=== PATIENT | male | born 1970 | race Asian ===

== ENCOUNTER 2019-12-26 13:54 | Inpatient (IN) | payer MEDICARE, MEDICAID ==
[~2019-12-26] VITALS: Ht 165.1 cm; Wt 73.1 kg
[~2019-12-26 13:54] MED LIST: ALBU8HFA IH; BENZ1TAB10 PO; CHOL100018 PO; FLUD25I IM; HYDR28.45 TP; IBUP-2070 PO; LORA-999 PO; LORA10TA7 PO; MUPI1OIN5 TP; PALI819S IM; QUET200T PO; TRAZ150 PO; VALP250S23 PO; VITS42.53 TP
[2019-12-26] MEDS ORDERED: ADENOSINE 3 MG/ML 2 ML VIAL IVP ONE ×2 (14:00→14:05)
[2019-12-26] MEDS ORDERED: DILTIAZEM HCL 5 MG/ML 5 ML VIAL IVP ONE (14:20)
[2019-12-26] MEDS ORDERED: SODIUM CHLORIDE 0.9% 2,000 ML IV ONE (14:30)
[2019-12-26 15:18] LABS: ABG A-A DIFF O2 44.6 mmHg (10-20.0); ABG CARBOXYHEMOGLOBIN 0.3 % (0.0-1.5); ABG HCO3 14.7 mmol/L (22.0-26.0); ABG METHEMOGLOBIN 0.3 % (0.0-1.5); ABG OXYGEN CONTENT 15.3 mL/dL (15.0-23.0); ABG OXYGEN SATURATION 90.4 % (95.0-98.0); ABG OXYHEMOGLOBIN 89.9 % (94.0-100.0); ABG PCO2 27 mmHg (35-45); ABG PH 7.283 (7.35-7.450); ABG TOTAL HEMOGLOBIN 12.1 G/dL (12.0-18.0); PO2, ARTERIAL BG 71.9 mmHg (88.0-96.0); SOURCE, BLOOD GAS ARTERIAL; TEMPERATURE, FAHRENHEIT, BG 101.5 FAHREN (96.0-98.6)
[2019-12-26 15:19] LABS: O2 DEVICE,BLOOD GAS ROOM AIR (ROOM AIR); SITE, BLOOD GAS RT RADIAL
[2019-12-26 15:20] LABS: BASOPHILS % (AUTO) 0.5 % (0.0-2.0); EOSINOPHILS % (AUTO) 0.3 % (1.0-6.0); HEMATOCRIT 38.3 % (41-53); LYMPHOCYTES # (AUTO) 2.1 K/uL (1.0-4.8); LYMPHOCYTES % (AUTO) 14.4 % (22.0-44.0); MEAN CORPUSCULAR HEMOGLOBIN 29.6 pg (26.0-34.0); MEAN CORPUSCULAR VOLUME 87 fL (80-100); MONOCYTES # (AUTO) 1.3 K/uL (0.1-1.0); MONOCYTES % (AUTO) 9.3 % (2.0-9.0); NEUTROPHILS # (AUTO) 10.9 K/uL (1.8-7.7); NEUTROPHILS % (AUTO) 75.5 % (40.0-70.0); PLATELET COUNT (AUTO) 255 K/uL (150-450); RED BLOOD CELL COUNT(AUTO) 4.38 MIL/uL (4.50-5.90); RED CELL DISTRIBUTION WIDTH 13.6 % (11.5-14.5)
[2019-12-26 15:32] LABS: ANION GAP 23 mmol/L (8-16); BILIRUBIN,TOTAL 0.4 mg/dL (0.1-1.0); CALCIUM, TOTAL 8.6 mg/dL (8.8-10.5); CARBON DIOXIDE 13 mmol/L (22-29); CHLORIDE 106 mmol/L (98-107); CREATININE 2.59 mg/dL (0.60-1.30); GLOMERULAR FILTR. RATE CALC 26 mL/min (>60); GLUCOSE,RANDOM 139 mg/dL (70-110); POTASSIUM 4.5 mmol/L (3.5-5.1); SODIUM SERUM 142 mmol/L (136-145); UREA NITROGEN, BLOOD 16 mg/dL (7-18)
[2019-12-26 15:33] LABS: ALANINE AMINOTRANSFERASE 18 U/L (12-78); ALBUMIN 3.5 g/dL (3.4-5.0); ALKALINE PHOSPHATASE 67 U/L (46-116); ASPARTATE AMINOTRANSFERASE 24 U/L (15-37); TOTAL PROTEIN, SERUM 7.3 g/dL (6.4-8.2)
[2019-12-26 15:48] LABS: ACETAMINOPHEN < 2 mcg/mL (10-30); LACTIC ACID 12.6 mmol/L (0.4-2.0)
[2019-12-26 16:00] LABS: SALICYLATE 1.9 mg/dL (2.8-20.0)
[2019-12-26] MEDS ORDERED: SODIUM CHLORIDE 0.9% 1,000 ML IV ONE (17:00)
[2019-12-26 18:04] LABS: INR 1.1 (0.9-1.1); PROTHROMBIN TIME 11.4 SEC (9.4-11.6)
[2019-12-26] MEDS ORDERED: 0.9% SODIUM CHLORIDE 10 ML SYRINGE IVP PRN (19:45)
[2019-12-26] MEDS ORDERED: ACETAMINOPHEN 325 MG TABLET PO PRN (19:45)
[2019-12-26] MEDS ORDERED: ONDANSETRON HCL 4 MG/2 ML VIAL IVP PRN (19:45)
[2019-12-26] MEDS ORDERED: LORA5SOL7 PO (19:59)
[2019-12-26] MEDS ORDERED: FLUV50 PO (19:59)
[2019-12-26] MEDS ORDERED: QUET200T29 PO (19:59)
[2019-12-26] MEDS ORDERED: TRAZ150T79 PO (19:59)
[2019-12-26] MEDS ORDERED: CHOL100018 PO (19:59)
[2019-12-26] MEDS ORDERED: PALI819S IM (19:59)
[2019-12-26] MEDS ORDERED: MELA3TAB41 PO (19:59)
[2019-12-26] MEDS ORDERED: BENZ1TAB10 PO (21:09)
[2019-12-26 23:15] VITALS: BP 111/73
[2019-12-26] MEDS: SODIUM CHLORIDE 0.45% 500 ML IV SCH (23:16)
[2019-12-27] MEDS: CefTRIAXone 1 GM/DEXTROSE 50 ML IV SCH ×2 (01:07→21:24)
[2019-12-27] MEDS: SODIUM CHLORIDE 0.45% 500 ML IV SCH ×2 (04:28→12:43)
[2019-12-27 04:29] VITALS: BP 100/65
[2019-12-27 06:39] LABS: BASOPHILS % (AUTO) 0.4 % (0.0-2.0); EOSINOPHILS % (AUTO) 0.2 % (1.0-6.0); HEMATOCRIT 31.3 % (41-53); LYMPHOCYTES # (AUTO) 1.9 K/uL (1.0-4.8); LYMPHOCYTES % (AUTO) 16.6 % (22.0-44.0); MEAN CORPUSCULAR HEMOGLOBIN 30.3 pg (26.0-34.0); MEAN CORPUSCULAR HGB CONC 35.2 G/dL (31.0-37.0); MEAN CORPUSCULAR VOLUME 86 fL (80-100); MONOCYTES # (AUTO) 1.3 K/uL (0.1-1.0); MONOCYTES % (AUTO) 11.4 % (2.0-9.0); NEUTROPHILS # (AUTO) 8.2 K/uL (1.8-7.7); NEUTROPHILS % (AUTO) 71.4 % (40.0-70.0); PLATELET COUNT (AUTO) 174 K/uL (150-450); RED BLOOD CELL COUNT(AUTO) 3.64 MIL/uL (4.50-5.90); RED CELL DISTRIBUTION WIDTH 13.9 % (11.5-14.5)
[2019-12-27 06:59] LABS: CREATININE 1.81 mg/dL (0.60-1.30); MAGNESIUM 2.4 mg/dL (1.80-2.40)
[2019-12-27] MEDS ORDERED: HEPARIN SODIUM,PORCINE 5,000 UNITS/ML VIAL IVP PRN ×2 (08:15)
[2019-12-27] MEDS: FAMOTIDINE 10 MG/ML 2 ML VIAL IVP SCH (08:35)
[2019-12-27] MEDS: DEXAMETHASONE SOD PHOS 4 MG/ML VIAL IVP SCH (08:37)
[2019-12-27 08:42] VITALS: BP 114/69
[2019-12-27 08:51] LABS: INR 1.1 (0.9-1.1); PROTHROMBIN TIME 11.5 SEC (9.4-11.6)
[2019-12-27 09:08] LABS: C-REACTIVE PROTEIN QUANT 2.09 mg/dL (0.00-0.30)
[2019-12-27 09:22] LABS: APPEARANCE,URINE CLEAR (CLEAR); BILIRUBIN,URINE NEGATIVE (NEGATIVE); GLUCOSE, URINE (UA) NEGATIVE (NEGATIVE); KETONES,URINE NEGATIVE (NEGATIVE); LEUKOCYTE ESTERASE ,URINE NEGATIVE (NEGATIVE); NITRATE,URINE NEGATIVE (NEGATIVE); OCCULT BLOOD,URINE LARGE (NEGATIVE); PH,URINE 5.5 (5.0-8.0); PROTEIN,URINE SEE CONFIRM (NEGATIVE); UROBILINOGEN,URINE 0.2 mg/dL (<=1.0)
[2019-12-27 09:28] LABS: AMPHET/METH SCREEN,URINE NEGATIVE (NEGATIVE); BARBITURATE SCREEN, URINE NEGATIVE (NEGATIVE); BENZODIAZEPINES SCREEN,URINE NEGATIVE (NEGATIVE); CANNABINOID SCREEN,URINE NEGATIVE (NEGATIVE); COCAINE SCREEN,URINE NEGATIVE (NEGATIVE); METHADONE SCREEN, URINE NEGATIVE (NEGATIVE); OPIATE SCREEN,URINE NEGATIVE (NEGATIVE)
[2019-12-27 09:31] LABS: PHENCYCLIDINE SCREEN,URINE NEGATIVE (NEGATIVE)
[2019-12-27 09:37] LABS: BACTERIA,URINE None Seen /HPF (None Seen); SULFOSALICYLIC ACID,URINE 2+ (Negative); WBC,URINE 0-2 /HPF (0-5)
[2019-12-27] MEDS ORDERED: LORA10TA7 PO (09:41)
[2019-12-27] MEDS ORDERED: MELA3TAB82 PO (09:42)
[2019-12-27] MEDS ORDERED: TRAZ150 PO (09:42)
[2019-12-27] MEDS ORDERED: QUET200T PO ×2 (09:42)
[2019-12-27] MEDS: HEPARIN SODIUM 25000 UNITS/D5W 250 ML IV PRN (09:57)
[2019-12-27 12:57] VITALS: BP 101/73
[2019-12-27] MEDS ORDERED: POTASSIUM CHLORIDE 20 MEQ ER TABLET PO ONE ×2 (13:15→19:00)
[2019-12-27] MEDS: DOXYCYCLINE HYCLATE 100 MG TABLET PO SCH ×2 (13:50→22:24)
[2019-12-27 16:33] VITALS: BP 107/72
[2019-12-27] MEDS: SODIUM BICARBONATE 150 MEQ in DEXTROSE 5%-WATER 1,000 ML IV SCH (20:21)
[2019-12-27 21:07] VITALS: BP 116/77
[2019-12-27] MEDS ORDERED: SODIUM CHLORIDE 0.9% 250 ML IV ONE (21:07)
[2019-12-28] MEDS: HEPARIN SODIUM 25000 UNITS/D5W 250 ML IV PRN (00:37)
[2019-12-28 06:31] LABS: BASOPHILS % (AUTO) 0.3 % (0.0-2.0); EOSINOPHILS % (AUTO) 0 % (1.0-6.0); HEMATOCRIT 32.3 % (41-53); HEMOGLOBIN 11.2 g/dL (13.5-17.5); LYMPHOCYTES # (AUTO) 2.2 K/uL (1.0-4.8); LYMPHOCYTES % (AUTO) 16.5 % (22.0-44.0); MEAN CORPUSCULAR HEMOGLOBIN 29.6 pg (26.0-34.0); MEAN CORPUSCULAR HGB CONC 34.6 G/dL (31.0-37.0); MEAN CORPUSCULAR VOLUME 86 fL (80-100); MONOCYTES # (AUTO) 1.2 K/uL (0.1-1.0); MONOCYTES % (AUTO) 8.8 % (2.0-9.0); NEUTROPHILS # (AUTO) 9.9 K/uL (1.8-7.7); NEUTROPHILS % (AUTO) 74.4 % (40.0-70.0); PLATELET COUNT (AUTO) 184 K/uL (150-450); RED BLOOD CELL COUNT(AUTO) 3.78 MIL/uL (4.50-5.90); RED CELL DISTRIBUTION WIDTH 13.8 % (11.5-14.5)
[2019-12-28 08:07] VITALS: BP 129/80
[2019-12-28 08:27] LABS: CREATINE KINASE, TOTAL ONLY 51249 U/L (39-308)
[2019-12-28 09:24] LABS: ANION GAP 9 mmol/L (8-16); CALCIUM, TOTAL 8.7 mg/dL (8.8-10.5); CARBON DIOXIDE 24 mmol/L (22-29); CHLORIDE 109 mmol/L (98-107); CREATININE 1.17 mg/dL (0.60-1.30); GLOMERULAR FILTR. RATE CALC > 60 mL/min (>60); GLUCOSE,RANDOM 115 mg/dL (70-110); POTASSIUM 4.2 mmol/L (3.5-5.1); SODIUM SERUM 142 mmol/L (136-145); UREA NITROGEN, BLOOD 14 mg/dL (7-18)
[2019-12-28] MEDS: DOXYCYCLINE HYCLATE 100 MG TABLET PO SCH ×2 (09:55→20:44)
[2019-12-28] MEDS: FAMOTIDINE 10 MG/ML 2 ML VIAL IVP SCH (09:55)
[2019-12-28] MEDS: SODIUM BICARBONATE 150 MEQ in DEXTROSE 5%-WATER 1,000 ML IV SCH ×2 (09:55→21:58)
[2019-12-28] MEDS ORDERED: MORPHINE SULFATE 2 MG/ML SYRINGE IVP PRN ×2 (10:45→12:00)
[2019-12-28 11:05] VITALS: BP 108/73
[2019-12-28] MEDS: DEXAMETHASONE SOD PHOS 4 MG/ML VIAL IVP SCH (11:51)
[2019-12-28 15:10] LABS: APPEARANCE,URINE CLEAR (CLEAR); BILIRUBIN,URINE NEGATIVE (NEGATIVE); GLUCOSE, URINE (UA) NEGATIVE (NEGATIVE); KETONES,URINE NEGATIVE (NEGATIVE); LEUKOCYTE ESTERASE ,URINE NEGATIVE (NEGATIVE); NITRATE,URINE NEGATIVE (NEGATIVE); OCCULT BLOOD,URINE LARGE (NEGATIVE); PH,URINE 6.5 (5.0-8.0); PROTEIN,URINE NEGATIVE (NEGATIVE); UROBILINOGEN,URINE 0.2 mg/dL (<=1.0)
[2019-12-28 15:28] LABS: BACTERIA,URINE None Seen /HPF (None Seen); RBC,URINE 0-2 /HPF (0-2); SQUAMOUS EPITHELIAL CELL,UR Rare /LPF (None Seen); WBC,URINE 0-2 /HPF (0-5)
[2019-12-28 16:27] VITALS: BP 106/66
[2019-12-28 20:18] LABS: HEMATOCRIT 29.7 % (41-53); HEMOGLOBIN 10.4 g/dL (13.5-17.5)
[2019-12-28] MEDS: CefTRIAXone 1 GM/DEXTROSE 50 ML IV SCH (20:44)
[2019-12-28 21:07] VITALS: BP 102/61
[2019-12-28] MEDS: MORPHINE SULFATE 2 MG/ML SYRINGE IVP PRN (21:09)
[2019-12-29 00:05] VITALS: BP 103/75
[2019-12-29] MEDS: MORPHINE SULFATE 2 MG/ML SYRINGE IVP PRN ×2 (01:02→20:19)
[2019-12-29 01:52] LABS: HEMATOCRIT 28.9 % (41-53)
[2019-12-29 04:10] VITALS: BP 100/65
[2019-12-29 07:36] LABS: BASOPHILS % (AUTO) 0.3 % (0.0-2.0); EOSINOPHILS % (AUTO) 0.9 % (1.0-6.0); HEMATOCRIT 31.2 % (41-53); HEMOGLOBIN 10.7 g/dL (13.5-17.5); LYMPHOCYTES # (AUTO) 1.5 K/uL (1.0-4.8); LYMPHOCYTES % (AUTO) 17.2 % (22.0-44.0); MEAN CORPUSCULAR HEMOGLOBIN 29.4 pg (26.0-34.0); MEAN CORPUSCULAR HGB CONC 34.3 G/dL (31.0-37.0); MEAN CORPUSCULAR VOLUME 86 fL (80-100); MONOCYTES # (AUTO) 0.8 K/uL (0.1-1.0); MONOCYTES % (AUTO) 8.8 % (2.0-9.0); NEUTROPHILS # (AUTO) 6.4 K/uL (1.8-7.7); NEUTROPHILS % (AUTO) 72.8 % (40.0-70.0); PLATELET COUNT (AUTO) 186 K/uL (150-450); RED BLOOD CELL COUNT(AUTO) 3.64 MIL/uL (4.50-5.90); RED CELL DISTRIBUTION WIDTH 13.5 % (11.5-14.5)
[2019-12-29 08:04] VITALS: BP 102/64
[2019-12-29 08:09] LABS: ALANINE AMINOTRANSFERASE 319 U/L (12-78); ALBUMIN 3.1 g/dL (3.4-5.0); ALKALINE PHOSPHATASE 55 U/L (46-116); ANION GAP 4 mmol/L (8-16); ASPARTATE AMINOTRANSFERASE 584 U/L (15-37); BILIRUBIN,TOTAL 0.5 mg/dL (0.1-1.0); CALCIUM, TOTAL 8.4 mg/dL (8.8-10.5); CARBON DIOXIDE 32 mmol/L (22-29); CHLORIDE 104 mmol/L (98-107); CREATININE 1.02 mg/dL (0.60-1.30); GLOMERULAR FILTR. RATE CALC > 60 mL/min (>60); GLUCOSE,RANDOM 117 mg/dL (70-110); POTASSIUM 3.4 mmol/L (3.5-5.1); SODIUM SERUM 140 mmol/L (136-145); THYROID STIMULATING HORMONE 1.36 uIU/mL (0.36-3.74); TOTAL PROTEIN, SERUM 6.1 g/dL (6.4-8.2); UREA NITROGEN, BLOOD 7 mg/dL (7-18)
[2019-12-29 08:19] LABS: APPEARANCE,URINE CLEAR (CLEAR); BILIRUBIN,URINE NEGATIVE (NEGATIVE); GLUCOSE, URINE (UA) NEGATIVE (NEGATIVE); KETONES,URINE NEGATIVE (NEGATIVE); LEUKOCYTE ESTERASE ,URINE NEGATIVE (NEGATIVE); NITRATE,URINE NEGATIVE (NEGATIVE); PH,URINE 8.5 (5.0-8.0); PROTEIN,URINE NEGATIVE (NEGATIVE); UROBILINOGEN,URINE 0.2 mg/dL (<=1.0)
[2019-12-29] MEDS: DOXYCYCLINE HYCLATE 100 MG TABLET PO SCH ×2 (08:29→20:18)
[2019-12-29] MEDS: FAMOTIDINE 10 MG/ML 2 ML VIAL IVP SCH (08:29)
[2019-12-29 08:34] LABS: CREATINE KINASE, TOTAL ONLY 22258 U/L (39-308)
[2019-12-29] MEDS: SODIUM BICARBONATE 150 MEQ in DEXTROSE 5%-WATER 1,000 ML IV SCH (08:38)
[2019-12-29 09:14] LABS: OCCULT BLOOD,URINE TRACE (NEGATIVE)
[2019-12-29 09:15] LABS: BACTERIA,URINE None Seen /HPF (None Seen); RBC,URINE 0-2 /HPF (0-2); WBC,URINE None Seen /HPF (0-5)
[2019-12-29] MEDS ORDERED: POTASSIUM CHLORIDE 20 MEQ ER TABLET PO ONE (10:15)
[2019-12-29] MEDS: POTASSIUM CHL 10 MEQ/WATER 50 ML IV SCH ×2 (10:42→12:26)
[2019-12-29 11:17] VITALS: BP 106/64
[2019-12-29 15:48] VITALS: BP 99/67
[2019-12-29 17:17] LABS: HEMATOCRIT 31.1 % (41-53); HEMOGLOBIN 10.7 g/dL (13.5-17.5)
[2019-12-29 17:30] LABS: ANION GAP 4 mmol/L (8-16); CALCIUM, TOTAL 8.7 mg/dL (8.8-10.5); CARBON DIOXIDE 33 mmol/L (22-29); CHLORIDE 103 mmol/L (98-107); CREATININE 1.05 mg/dL (0.60-1.30); GLOMERULAR FILTR. RATE CALC > 60 mL/min (>60); GLUCOSE,RANDOM 109 mg/dL (70-110); PHOSPHORUS 3.2 mg/dL (2.5-4.9); POTASSIUM 3.9 mmol/L (3.5-5.1); SODIUM SERUM 140 mmol/L (136-145); UREA NITROGEN, BLOOD 10 mg/dL (7-18)
[2019-12-29] MEDS: CefTRIAXone 1 GM/DEXTROSE 50 ML IV SCH (20:19)
[2019-12-30 07:10] VITALS: BP 111/78
[2019-12-30] MEDS: FAMOTIDINE 10 MG/ML 2 ML VIAL IVP SCH (08:41)
[2019-12-30] MEDS: DOXYCYCLINE HYCLATE 100 MG TABLET PO SCH ×2 (08:41→21:35)
[2019-12-30 12:16] VITALS: BP 118/80
[2019-12-30] MEDS: SODIUM BICARBONATE 150 MEQ in DEXTROSE 5%-WATER 1,000 ML IV SCH ×2 (12:32→23:04)
[2019-12-30 15:45] VITALS: BP 106/76
[2019-12-30 17:01] LABS: BASOPHILS % (AUTO) 0.6 % (0.0-2.0); EOSINOPHILS % (AUTO) 1.6 % (1.0-6.0); HEMATOCRIT 34.4 % (41-53); HEMOGLOBIN 11.6 g/dL (13.5-17.5); LYMPHOCYTES # (AUTO) 1.7 K/uL (1.0-4.8); LYMPHOCYTES % (AUTO) 19.3 % (22.0-44.0); MEAN CORPUSCULAR HGB CONC 33.6 G/dL (31.0-37.0); MEAN CORPUSCULAR VOLUME 86 fL (80-100); MONOCYTES # (AUTO) 0.8 K/uL (0.1-1.0); MONOCYTES % (AUTO) 8.7 % (2.0-9.0); NEUTROPHILS # (AUTO) 6.1 K/uL (1.8-7.7); NEUTROPHILS % (AUTO) 69.8 % (40.0-70.0); PLATELET COUNT (AUTO) 223 K/uL (150-450); RED BLOOD CELL COUNT(AUTO) 3.99 MIL/uL (4.50-5.90); RED CELL DISTRIBUTION WIDTH 13.6 % (11.5-14.5)
[2019-12-30 17:36] LABS: CREATININE 1.44 mg/dL (0.60-1.30); POTASSIUM 3.5 mmol/L (3.5-5.1)
[2019-12-30 17:37] LABS: C-REACTIVE PROTEIN QUANT 5.47 mg/dL (0.00-0.30); CALCIUM, TOTAL 9.3 mg/dL (8.8-10.5); MAGNESIUM 1.7 mg/dL (1.80-2.40); PHOSPHORUS 3.5 mg/dL (2.5-4.9)
[2019-12-30 19:56] VITALS: BP 114/72
[2019-12-30] MEDS: MAGNESIUM OXIDE 400 MG TABLET PO SCH (21:35)
[2019-12-30] MEDS: CefTRIAXone 1 GM/DEXTROSE 50 ML IV SCH (21:35)
[2019-12-30 21:38] LABS: APPEARANCE,URINE CLEAR (CLEAR); BILIRUBIN,URINE NEGATIVE (NEGATIVE); GLUCOSE, URINE (UA) NEGATIVE (NEGATIVE); KETONES,URINE NEGATIVE (NEGATIVE); LEUKOCYTE ESTERASE ,URINE NEGATIVE (NEGATIVE); NITRATE,URINE NEGATIVE (NEGATIVE); OCCULT BLOOD,URINE TRACE (NEGATIVE); PH,URINE 8.5 (5.0-8.0); PROTEIN,URINE NEGATIVE (NEGATIVE); UROBILINOGEN,URINE 0.2 mg/dL (<=1.0)
[2019-12-30 21:41] LABS: BACTERIA,URINE None Seen /HPF (None Seen); RBC,URINE 0-2 /HPF (0-2); SQUAMOUS EPITHELIAL CELL,UR Rare /LPF (None Seen); WBC,URINE None Seen /HPF (0-5)
[2019-12-30 23:43] VITALS: BP 123/59
[2019-12-31 08:14] LABS: BASOPHILS % (AUTO) 0.7 % (0.0-2.0); EOSINOPHILS % (AUTO) 3.9 % (1.0-6.0); HEMATOCRIT 31.2 % (41-53); HEMOGLOBIN 10.7 g/dL (13.5-17.5); LYMPHOCYTES # (AUTO) 1.3 K/uL (1.0-4.8); LYMPHOCYTES % (AUTO) 16.2 % (22.0-44.0); MEAN CORPUSCULAR HEMOGLOBIN 29.4 pg (26.0-34.0); MEAN CORPUSCULAR HGB CONC 34.2 G/dL (31.0-37.0); MEAN CORPUSCULAR VOLUME 86 fL (80-100); MONOCYTES # (AUTO) 0.9 K/uL (0.1-1.0); MONOCYTES % (AUTO) 10.9 % (2.0-9.0); NEUTROPHILS # (AUTO) 5.3 K/uL (1.8-7.7); NEUTROPHILS % (AUTO) 68.3 % (40.0-70.0); PLATELET COUNT (AUTO) 229 K/uL (150-450); RED BLOOD CELL COUNT(AUTO) 3.63 MIL/uL (4.50-5.90)
[2019-12-31] MEDS: MAGNESIUM OXIDE 400 MG TABLET PO SCH ×2 (08:19→20:42)
[2019-12-31] MEDS: DOXYCYCLINE HYCLATE 100 MG TABLET PO SCH ×2 (08:19→20:42)
[2019-12-31] MEDS: SODIUM BICARBONATE 150 MEQ in DEXTROSE 5%-WATER 1,000 ML IV SCH ×3 (08:21→19:07)
[2019-12-31] MEDS: FAMOTIDINE 10 MG/ML 2 ML VIAL IVP SCH (08:21)
[2019-12-31 08:24] VITALS: BP 115/71
[2019-12-31 09:02] LABS: ALANINE AMINOTRANSFERASE 210 U/L (12-78); ALBUMIN 2.9 g/dL (3.4-5.0); ALKALINE PHOSPHATASE 68 U/L (46-116); ANION GAP 4 mmol/L (8-16); ASPARTATE AMINOTRANSFERASE 235 U/L (15-37); BILIRUBIN,TOTAL 0.6 mg/dL (0.1-1.0); CALCIUM, TOTAL 8.8 mg/dL (8.8-10.5); CARBON DIOXIDE 33 mmol/L (22-29); CHLORIDE 100 mmol/L (98-107); GLOMERULAR FILTR. RATE CALC > 60 mL/min (>60); GLUCOSE,RANDOM 104 mg/dL (70-110); PHOSPHORUS 3.6 mg/dL (2.5-4.9); POTASSIUM 3.6 mmol/L (3.5-5.1); SODIUM SERUM 137 mmol/L (136-145); UREA NITROGEN, BLOOD 10 mg/dL (7-18)
[2019-12-31 09:05] LABS: CREATINE KINASE, TOTAL ONLY 5985 U/L (39-308)
[2019-12-31 11:10] VITALS: BP 117/64
[2019-12-31 15:07] VITALS: BP 115/69
[2019-12-31 19:55] VITALS: BP 103/67
[2019-12-31] MEDS: CefTRIAXone 1 GM/DEXTROSE 50 ML IV SCH (20:42)
[2020-01-01 00:05] VITALS: BP 108/66
[2020-01-01] MEDS: MORPHINE SULFATE 2 MG/ML SYRINGE IVP PRN (03:42)
[2020-01-01] MEDS: SODIUM BICARBONATE 150 MEQ in DEXTROSE 5%-WATER 1,000 ML IV SCH ×2 (04:02→12:29)
[2020-01-01 04:47] VITALS: BP 112/75
[2020-01-01 08:16] VITALS: BP 112/76
[2020-01-01] MEDS ORDERED: MAGNESIUM SULFATE 2 GM/WATER 50 ML IV ONE (08:30)
[2020-01-01] MEDS: FAMOTIDINE 10 MG/ML 2 ML VIAL IVP SCH (08:47)
[2020-01-01] MEDS: DOXYCYCLINE HYCLATE 100 MG TABLET PO SCH ×2 (08:47→20:04)
[2020-01-01] MEDS: MAGNESIUM OXIDE 400 MG TABLET PO SCH ×2 (08:47→20:03)
[2020-01-01 19:20] VITALS: BP 121/77
[2020-01-01] MEDS: CefTRIAXone 1 GM/DEXTROSE 50 ML IV SCH (20:04)
[2020-01-01] MEDS: OLANZapine 5 MG TABLET PO SCH (20:04)
[2020-01-01 23:47] VITALS: BP 128/73
[2020-01-02] MEDS: SODIUM BICARBONATE 150 MEQ in DEXTROSE 5%-WATER 1,000 ML IV SCH ×3 (00:09→22:11)
[2020-01-02 04:19] VITALS: BP 110/69
[2020-01-02 08:14] VITALS: BP 106/66
[2020-01-02] MEDS: DOXYCYCLINE HYCLATE 100 MG TABLET PO SCH (10:03)
[2020-01-02] MEDS: FAMOTIDINE 10 MG/ML 2 ML VIAL IVP SCH (10:03)
[2020-01-02 11:57] VITALS: BP 104/74
[2020-01-02] MEDS: OLANZapine 5 MG TABLET PO SCH ×2 (12:09→20:30)
[2020-01-02 15:34] VITALS: BP 106/67
[2020-01-02] MEDS: MORPHINE SULFATE 2 MG/ML SYRINGE IVP PRN (18:43)
[2020-01-02 19:36] VITALS: BP 110/70
[2020-01-03] VITALS (8 sets, daily range): BP systolic 103–126; BP diastolic 63–79
[2020-01-03] MEDS: FAMOTIDINE 10 MG/ML 2 ML VIAL IVP SCH (08:19)
[2020-01-03] MEDS: OLANZapine 5 MG TABLET PO SCH ×2 (08:19→20:39)
[2020-01-03] MEDS: SODIUM BICARBONATE 150 MEQ in DEXTROSE 5%-WATER 1,000 ML IV SCH ×2 (08:20→22:21)
[2020-01-03] MEDS ORDERED: MAGNESIUM SULFATE 4 GM/WATER 100 ML IV PRN (09:00)
[2020-01-03] MEDS ORDERED: MAGNESIUM OXIDE 400 MG TABLET PO PRN (09:00)
[2020-01-03] MEDS ORDERED: MAGNESIUM SULFATE 2 GM/WATER 50 ML IV PRN (09:00)
[2020-01-03] MEDS ORDERED: REGADENOSON 0.4 MG/5 ML PF SYRINGE IVP ONE (10:13)
[2020-01-03] MEDS ORDERED: SESTAMIBI TC99M/UD ISOTOPE 1 EA INJ INJ ONE ×2 (10:15→12:15)
[2020-01-03] MEDS ORDERED: AMINOPHYLLINE 25 MG/ML 10 ML VIAL IVP ONE (10:22)
[2020-01-03 11:15] LABS: BASOPHILS % (AUTO) 0.6 % (0.0-2.0); EOSINOPHILS % (AUTO) 2.3 % (1.0-6.0); HEMATOCRIT 33.1 % (41-53); LYMPHOCYTES # (AUTO) 1.6 K/uL (1.0-4.8); LYMPHOCYTES % (AUTO) 19.2 % (22.0-44.0); MEAN CORPUSCULAR HEMOGLOBIN 29.3 pg (26.0-34.0); MEAN CORPUSCULAR HGB CONC 33.3 G/dL (31.0-37.0); MEAN CORPUSCULAR VOLUME 88 fL (80-100); MONOCYTES # (AUTO) 0.9 K/uL (0.1-1.0); MONOCYTES % (AUTO) 11.2 % (2.0-9.0); NEUTROPHILS # (AUTO) 5.6 K/uL (1.8-7.7); NEUTROPHILS % (AUTO) 66.7 % (40.0-70.0); PLATELET COUNT (AUTO) 339 K/uL (150-450); RED BLOOD CELL COUNT(AUTO) 3.77 MIL/uL (4.50-5.90); RED CELL DISTRIBUTION WIDTH 13.6 % (11.5-14.5)
[2020-01-03 11:44] LABS: ANION GAP 6 mmol/L (8-16); CALCIUM, TOTAL 9.1 mg/dL (8.8-10.5); CARBON DIOXIDE 31 mmol/L (22-29); CHLORIDE 104 mmol/L (98-107); CREATININE 0.89 mg/dL (0.60-1.30); GLOMERULAR FILTR. RATE CALC > 60 mL/min (>60); GLUCOSE,RANDOM 131 mg/dL (70-110); POTASSIUM 4.1 mmol/L (3.5-5.1); SODIUM SERUM 141 mmol/L (136-145); UREA NITROGEN, BLOOD 18 mg/dL (7-18)
[2020-01-03 12:22] LABS: ALANINE AMINOTRANSFERASE 157 U/L (12-78); ALKALINE PHOSPHATASE 77 U/L (46-116); ASPARTATE AMINOTRANSFERASE 140 U/L (15-37); BILIRUBIN,TOTAL 0.6 mg/dL (0.1-1.0); CREATINE KINASE, TOTAL ONLY 4882 U/L (39-308); TOTAL PROTEIN, SERUM 7.4 g/dL (6.4-8.2)
[2020-01-03 13:02] LABS: LEGIONELLA PNEUMO AG URINE Negative (Negative)
[2020-01-03 13:06] LABS: ORGANISM ID Not indicated.; S PNEUMO SOURCE Urine; STREP PNEUMONIAE AG URINE Negative (Negative); STREP.PNEUMO BODY FLUID CULT. Not indicated.
[2020-01-04 04:09] VITALS: BP 106/63
[2020-01-04] MEDS: SODIUM BICARBONATE 150 MEQ in DEXTROSE 5%-WATER 1,000 ML IV SCH (07:43)
[2020-01-04] MEDS: SODIUM CHLORIDE 0.45% 1,000 ML IV SCH ×2 (09:51→19:51)
[2020-01-04] MEDS: FAMOTIDINE 10 MG/ML 2 ML VIAL IVP SCH (10:30)
[2020-01-04] MEDS: OLANZapine 5 MG TABLET PO SCH (10:30)
[2020-01-04 11:25] VITALS: BP 102/70
[2020-01-04 11:41] LABS: BASOPHILS % (AUTO) 1.2 % (0.0-2.0); HEMOGLOBIN 10.4 g/dL (13.5-17.5); LYMPHOCYTES # (AUTO) 1.7 K/uL (1.0-4.8); LYMPHOCYTES % (AUTO) 25.4 % (22.0-44.0); MEAN CORPUSCULAR HEMOGLOBIN 28.9 pg (26.0-34.0); MEAN CORPUSCULAR HGB CONC 33.7 G/dL (31.0-37.0); MEAN CORPUSCULAR VOLUME 86 fL (80-100); MONOCYTES % (AUTO) 15.4 % (2.0-9.0); NEUTROPHILS # (AUTO) 3.7 K/uL (1.8-7.7); PLATELET COUNT (AUTO) 302 K/uL (150-450); RED CELL DISTRIBUTION WIDTH 13.6 % (11.5-14.5)
[2020-01-04 11:50] LABS: ANION GAP 3 mmol/L (8-16); CARBON DIOXIDE 34 mmol/L (22-29); CHLORIDE 104 mmol/L (98-107); CREATININE 0.94 mg/dL (0.60-1.30); GLOMERULAR FILTR. RATE CALC > 60 mL/min (>60); GLUCOSE,RANDOM 108 mg/dL (70-110); POTASSIUM 3.6 mmol/L (3.5-5.1); SODIUM SERUM 141 mmol/L (136-145); UREA NITROGEN, BLOOD 19 mg/dL (7-18)
[2020-01-04 12:32] LABS: ALANINE AMINOTRANSFERASE 145 U/L (12-78); ALBUMIN 2.8 g/dL (3.4-5.0); ALKALINE PHOSPHATASE 82 U/L (46-116); ASPARTATE AMINOTRANSFERASE 121 U/L (15-37); BILIRUBIN,TOTAL 0.5 mg/dL (0.1-1.0); TOTAL PROTEIN, SERUM 7.1 g/dL (6.4-8.2)
[2020-01-04 12:34] LABS: CREATINE KINASE, TOTAL ONLY 2753 U/L (39-308)
[2020-01-04 16:47] VITALS: BP 111/70
== END 2020-01-04 20:56 | disposition home or self-care (01) | DRG 871 ==
LOC: EMS 13:55 → EDBD 13:55 → 5N 19:00 → 5S 12-29 15:53 → 6S 12-31 17:40 → 4E 01-02 09:02
PROVIDERS: ADMIT Internal Medicine; ATTEND Internal Medicine
PROC: 5A2204Z Restoration of Cardiac Rhythm, Single (ICD-10-PCS; 2019-12-26)
PROC: 0T9B70Z Drainage of Bladder with Drainage Device, Via Natural or Artificial Opening (ICD-10-PCS; 2019-12-26)
PROC: 4A02XM4 Measurement of Cardiac Total Activity, External Approach (ICD-10-PCS; principal; 2020-01-03)
PROC: 3E073KZ Introduction of Other Diagnostic Substance into Coronary Artery, Percutaneous Approach (ICD-10-PCS; 2020-01-03)
DX: A41.9 Sepsis, unspecified organism (principal); J96.01 Acute respiratory failure with hypoxia; I21.4 Non-ST elevation (NSTEMI) myocardial infarction; J15.9 Unspecified bacterial pneumonia; G92 Toxic encephalopathy; N17.9 Acute kidney failure, unspecified; E87.2 Acidosis; M62.82 Rhabdomyolysis; I47.1 Supraventricular tachycardia; S70.02XA Contusion of left hip, initial encounter; Z20.828 Contact with and (suspected) exposure to other viral communicable diseases; M25.552 Pain in left hip; R65.20 Severe sepsis without septic shock; E86.0 Dehydration; I95.9 Hypotension, unspecified; R00.1 Bradycardia, unspecified; R19.7 Diarrhea, unspecified; E87.6 Hypokalemia; F20.9 Schizophrenia, unspecified; Z79.899 Other long term (current) drug therapy; Z87.891 Personal history of nicotine dependence; T45.515A Adverse effect of anticoagulants, initial encounter; Y92.230 Patient room in hospital as the place of occurrence of the external cause
CPT/HCPCS: 36600; 70450; 73700; 76770; 78452; 82728; 82805; 83605; 83615; 83735; 84100; 84145; 84443; 85014; 85018; 86140; 87040; 87449; 87899; 93005; 93017; 93306; 99291; A9500; G0378; G0480; G0481; J0153; J0696; J1100; J1644; J2270; J3475; J3480; J3490; J7030; J7050; J7060; 36415-L1; 36415-TC; 71045-TC; U0003-CS

== ENCOUNTER 2020-01-12 09:06 | Emergency (ER) | payer MEDICARE, MEDICAID ==
[~2020-01-12] VITALS: Ht 167.6 cm; Wt 77.3 kg
[~2020-01-12 09:06] MED LIST changes: +MELA3TAB82 PO
[2020-01-12] MEDS ORDERED: KETOROLAC TROMETHAMINE 30 MG/ML VIAL IVP ONE (09:30)
[2020-01-12 10:08] LABS: BASOPHILS % (AUTO) 1.2 % (0.0-2.0); EOSINOPHILS % (AUTO) 2.1 % (1.0-6.0); HEMATOCRIT 30.2 % (41-53); HEMOGLOBIN 10.1 g/dL (13.5-17.5); LYMPHOCYTES # (AUTO) 1.2 K/uL (1.0-4.8); LYMPHOCYTES % (AUTO) 22.9 % (22.0-44.0); MEAN CORPUSCULAR HEMOGLOBIN 29.2 pg (26.0-34.0); MEAN CORPUSCULAR HGB CONC 33.5 G/dL (31.0-37.0); MEAN CORPUSCULAR VOLUME 87 fL (80-100); MONOCYTES # (AUTO) 0.5 K/uL (0.1-1.0); MONOCYTES % (AUTO) 9.3 % (2.0-9.0); NEUTROPHILS # (AUTO) 3.5 K/uL (1.8-7.7); NEUTROPHILS % (AUTO) 64.5 % (40.0-70.0); PLATELET COUNT (AUTO) 397 K/uL (150-450); RED BLOOD CELL COUNT(AUTO) 3.47 MIL/uL (4.50-5.90); RED CELL DISTRIBUTION WIDTH 14.1 % (11.5-14.5)
[2020-01-12 10:18] LABS: ANION GAP 6 mmol/L (8-16); CALCIUM, TOTAL 9.4 mg/dL (8.8-10.5); CARBON DIOXIDE 28 mmol/L (22-29); CHLORIDE 104 mmol/L (98-107); CREATININE 1.16 mg/dL (0.60-1.30); GLOMERULAR FILTR. RATE CALC > 60 mL/min (>60); GLUCOSE,RANDOM 104 mg/dL (70-110); POTASSIUM 3.8 mmol/L (3.5-5.1); SODIUM SERUM 138 mmol/L (136-145); UREA NITROGEN, BLOOD 18 mg/dL (7-18)
[2020-01-12 10:24] LABS: ALANINE AMINOTRANSFERASE 65 U/L (12-78); ALBUMIN 3.3 g/dL (3.4-5.0); ALKALINE PHOSPHATASE 68 U/L (46-116); ASPARTATE AMINOTRANSFERASE 30 U/L (15-37); BILIRUBIN,TOTAL 0.4 mg/dL (0.1-1.0); LIPASE 127 U/L (73-393); TOTAL PROTEIN, SERUM 7.4 g/dL (6.4-8.2)
[2020-01-12 11:47] VITALS: BP 114/78
== END 2020-01-12 12:55 | disposition home or self-care (01) ==
LOC: EMS 09:07
DX: R10.84 Generalized abdominal pain (principal); F20.9 Schizophrenia, unspecified
CPT/HCPCS: 36415; 74019; 80053; 83690; 85025; 96374; 99284; J1885

== ENCOUNTER 2020-09-04 14:20 | Emergency (ER) | payer MEDICARE, MEDICAID ==
[~2020-09-04] VITALS: Ht 167.6 cm; Wt 72.7 kg
[~2020-09-04 14:20] MED LIST changes: -ALBU8HFA IH; -FLUD25I IM; -HYDR28.45 TP; -IBUP-2070 PO; -LORA-999 PO; -MELA3TAB82 PO; -MUPI1OIN5 TP; +VALP250C48 PO; -VALP250S23 PO; -VITS42.53 TP
[2020-09-04 15:53] LABS: BASOPHILS % (AUTO) 0.7 % (0.0-2.0); EOSINOPHILS % (AUTO) 0.2 % (1.0-6.0); HEMATOCRIT 38.1 % (41-53); HEMOGLOBIN 12.8 g/dL (13.5-17.5); LYMPHOCYTES # (AUTO) 1.5 K/uL (1.0-4.8); LYMPHOCYTES % (AUTO) 19.8 % (22.0-44.0); MEAN CORPUSCULAR HEMOGLOBIN 29.2 pg (26.0-34.0); MEAN CORPUSCULAR HGB CONC 33.5 G/dL (31.0-37.0); MEAN CORPUSCULAR VOLUME 87 fL (80-100); MONOCYTES # (AUTO) 0.8 K/uL (0.1-1.0); MONOCYTES % (AUTO) 10.2 % (2.0-9.0); NEUTROPHILS # (AUTO) 5.1 K/uL (1.8-7.7); NEUTROPHILS % (AUTO) 69.1 % (40.0-70.0); PLATELET COUNT (AUTO) 175 K/uL (150-450); RED BLOOD CELL COUNT(AUTO) 4.38 MIL/uL (4.50-5.90); RED CELL DISTRIBUTION WIDTH 14.6 % (11.5-14.5)
[2020-09-04 16:05] LABS: CREATININE 1.83 mg/dL (0.60-1.30); POTASSIUM 4.5 mmol/L (3.5-5.1)
[2020-09-04 16:21] LABS: ALBUMIN 3.7 g/dL (3.4-5.0); BILIRUBIN,TOTAL 0.3 mg/dL (0.1-1.0); TOTAL PROTEIN, SERUM 7.8 g/dL (6.4-8.2)
[2020-09-04] MEDS ORDERED: MORPHINE SULFATE 4 MG/ML SYRINGE IVP ONE (17:15)
[2020-09-04] MEDS ORDERED: ONDANSETRON HCL 4 MG/2 ML VIAL IVP ONE (17:15)
[2020-09-04] MEDS ORDERED: SODIUM CHLORIDE 0.9% 1,000 ML IV ONE ×2 (17:15→18:30)
[2020-09-04 21:00] VITALS: BP 128/87
[2020-09-04 21:42] LABS: APPEARANCE,URINE CLEAR (CLEAR); BILIRUBIN,URINE NEGATIVE (NEGATIVE); GLUCOSE, URINE (UA) NEGATIVE (NEGATIVE); KETONES,URINE NEGATIVE (NEGATIVE); LEUKOCYTE ESTERASE ,URINE NEGATIVE (NEGATIVE); NITRATE,URINE NEGATIVE (NEGATIVE); OCCULT BLOOD,URINE NEGATIVE (NEGATIVE); PROTEIN,URINE NEGATIVE (NEGATIVE); UROBILINOGEN,URINE 0.2 mg/dL (<=1.0)
[2020-09-04 21:59] LABS: BACTERIA,URINE None Seen /HPF (None Seen); RBC,URINE None Seen /HPF (0-2); SQUAMOUS EPITHELIAL CELL,UR None Seen /LPF (None Seen); WBC,URINE None Seen /HPF (0-5)
== END 2020-09-04 22:43 | disposition home or self-care (01) ==
LOC: EMS 14:27
DX: R10.32 Left lower quadrant pain (principal); R10.12 Left upper quadrant pain; K62.89 Other specified diseases of anus and rectum; F20.9 Schizophrenia, unspecified
CPT/HCPCS: 36415; 74176; 80053; 81001; 82550; 83690; 84484; 85025; 93005; 96361; 96374; 96375; 99285; J2270; J2405; J7030; 99284

== ENCOUNTER 2022-06-14 20:01 | Emergency (ER) | payer MEDICARE, MEDICAID ==
[~2022-06-14] VITALS: Ht 167.6 cm; Wt 75.0 kg
[~2022-06-14 20:01] MED LIST changes: -BENZ1TAB10 PO; +BENZ1TAB96 PO; -TRAZ150 PO; +TRAZ150T80 PO
[2022-06-14] MEDS ORDERED: DiphenhydrAMINE HCL 25 MG CAPSULE PO ONE (23:30)
[2022-06-14] MEDS ORDERED: BACITRACIN 0.9 GM PACKET OINTMENT TP ONE (23:30)
[2022-06-15] MEDS ORDERED: ACETAMINOPHEN/CODEINE 300-30 MG TABLET PO ONE (00:45)
[2022-06-15] MEDS ORDERED: ACET-2080 PO (02:19)
[2022-06-15] MEDS ORDERED: IBUP-1554 PO (02:19)
[2022-06-15] MEDS ORDERED: BACI28OI29 TP (02:19)
[2022-06-15 03:08] VITALS: BP 115/83
== END 2022-06-15 05:29 | disposition home or self-care (01) ==
LOC: EMS 20:02
DX: F20.0 Paranoid schizophrenia (principal); Z48.00 Encounter for change or removal of nonsurgical wound dressing
CPT/HCPCS: 99284; Z7502; Z7610